=== PATIENT | male | born 1995 | race Caucasian/White ===

== ENCOUNTER 2017-11-04 02:00 | Emergency (ER) | payer SELFPAY ==
[2017-11-04 02:19] VITALS: BP 130/60; PULSE 62; RESP 14; TEMP 95.5; O2SAT 100
[2017-11-04] MEDS ORDERED: SODIUM CHLORIDE 0.9% FLUSH 10 ML FLUSH IV FLUSH PRN (02:30)
[2017-11-04 02:43] LABS: AMORPHOUS SEDIMENT, URINE RARE; BILIRUBIN, URINE NEG (NEG); BLOOD, URINE NEG (NEG); GLUCOSE,URINE NEG (NEG); KETONE, URINE NEG (NEG); NITRITE,URINE NEG (NEG); PH, URINE 5.5 (5.0-8.5); URINE COLOR COLORLESS (YELLW/STRAW); URINE LEUKOCYTE ESTERASE NEG (NEG)
[2017-11-04 02:52] LABS: AUTOMATED NEUTROPHIL # 4.9 TH/MM3 (1.8-7.7); BASOPHIL # 0.1 TH/MM3 (0-0.2); BASOPHIL % 0.8 % (0.0-2.0); EOSINOPHIL % 0.4 % (0.0-4.0); HEMATOCRIT 42.4 % (39.0-51.0); HEMOGLOBIN 14.2 GM/DL (13.0-17.0); LYMPH % 23.7 % (9.0-44.0); LYMPHOCYTE # 1.6 TH/MM3 (1.0-4.8); MEAN CELL VOLUME 89.7 FL (80.0-100.0); MEAN CORPUSCULAR HGB CONC 33.4 % (32.0-36.0); MEAN PLATELET VOLUME 9.3 FL (7.0-11.0); MONOCYTE # 0.3 TH/MM3 (0-0.9); NEUT % 71.1 % (16.0-70.0); PLATELET COUNT 220 TH/MM3 (150-450); RED BLOOD COUNT 4.73 MIL/MM3 (4.50-5.90); RED CELL DISTRIBUTION WIDTH 12.4 % (11.6-17.2); WHITE BLOOD COUNT 6.9 TH/MM3 (4.0-11.0)
[2017-11-04 02:57] LABS: ALBUMIN 4.6 GM/DL (3.4-5.0); ALT (GPT) 20 U/L (9-52); AST (GOT) 21 U/L (15-39); BICARBONATE 25.9 MEQ/L (21.0-32.0); BLOOD UREA NITROGEN 11 MG/DL (7-18); CALCIUM 8.1 MG/DL (8.5-10.1); CHLORIDE 103 MEQ/L (98-107); CREATININE 0.93 MG/DL (0.60-1.30); GLOMERULAR FILTRATION RATE 104 ML/MIN (>89); GLUCOSE,RANDOM 125 MG/DL (74-106); SODIUM (NA) 139 MEQ/L (136-145)
[2017-11-04 03:00] LABS: ALKALINE PHOSPHATASE 84 U/L (45-117); TOTAL BILIRUBIN ADULT 0.2 MG/DL (0.2-1.0); TOTAL PROTEIN 7.8 GM/DL (6.4-8.2)
[2017-11-04 03:01] LABS: ACETAMINOPHEN LESS THAN 2.0 MCG/ML (10.0-30.0)
[2017-11-04] MEDS ORDERED: SODIUM CHLOR 0.9% 1000 ML INJ 1,000 ML IV ONE (04:45)
--- NOTE | 2017-11-04 05:51 | PD ---
HPI . Alcohol/drug intoxication Chief Complaint: Alcohol/Drug Intoxication Time Seen by Provider: 02:20 Travel History International Travel<30 days: No Contact w/Intl Traveler<30days: No Traveled to known affect area: No History of Present Illness HPI 22-year-old male brought in by friends with intoxication and possible co- ingestion of illicit drugs as per friends. Patient is "not acting right". Unknown ingestion. No known suicidal ideations. PFSH Past Medical History Narrative Medical No known past medical history as per patient's friends/co-students Medical History: Unable to Obtain Diminished Hearing: No Past Surgical History Surgical History: Unable to Obtain Social History Alcohol Use: Yes (OCCASIONALLY ) Tobacco Use: No Substance Use: Yes (MARIJUANA-OCCASIONALLY ) Allergies-Medications (Allergen,Severity, Reaction): Coded Allergies: No Allergy Information Available (Unverified , 11/04/17) Narrative Medication Allergy history not available Review of Systems ROS Limitations: Clinical Condition, Intoxication Physical Exam Exam Limitations: Clinical Condition, Intoxication Narrative GENERAL: Intoxicated, delirious, nonverbal SKIN: Skin is cool and dry, no diaphoresis no rashes no flushing HEAD: Atraumatic. Normocephalic. EYES: Pupils equal and round and markedly dilated 7-9 mm, poorly reactive. No scleral icterus. No injection or drainage. No nystagmus ENT: No nasal bleeding or discharge. Mucous membranes pink and moist. NECK: Trachea midline. No JVD. Supple CARDIOVASCULAR: Regular rate and rhythm. S1-S2 no murmurs or gallops RESPIRATORY: No accessory muscle use. Clear to auscultation. Breath sounds equal bilaterally. GASTROINTESTINAL: Abdomen soft, non-tender, nondistended. Hepatic and splenic margins not palpable. MUSCULOSKELETAL: Extremities without clubbing, cyanosis, or edema. No obvious deformities. NEUROLOGICAL: Awake and delirious, writhing movements, combative but not directed PSYCHIATRIC: Appropriate mood and affect; insight and judgment normal. Data Data Last Documented VS Vital Signs Date Time Temp Pulse Resp B/P (MAP) Pulse Ox O2 Delivery O2 Flow Rate FiO2 11/04/17 02:19 95.5 62 14 130/60 (83) 100 Orders Orders Electrocardiogram (11/04/17 02:20) Ammonia (11/04/17 02:20) Complete Blood Count With Diff (11/04/17 02:20) Comprehensive Metabolic Panel (11/04/17 02:20) Urinalysis - C+S If Indicated (11/04/17 02:20) Blood Glucose (11/04/17 02:20) Ecg Monitoring (11/04/17 02:20) Iv Access Insert/Monitor (11/04/17 02:20) Oximetry (11/04/17 02:20) Sodium Chloride 0.9% Flush (Ns Flush) (11/04/17 02:30) Drug Screen, Random Urine (11/04/17 02:20) Alcohol (Ethanol) (11/04/17 02:20) Tylenol (Acetaminophen) (11/04/17 02:20) Salicylates (Aspirin) (11/04/17 02:20) Bedside Glucose [id number] (11/04/17 02:20) Sodium Chlor 0.9% 1000 Ml Inj (Ns 1000 M (11/04/17 04:45) Ed Discharge Order (11/04/17 06:18) Labs Laboratory Tests Test 11/04/17 02:26 White Blood Count 6.9 TH/MM3 Red Blood Count 4.73 MIL/MM3 Hemoglobin 14.2 GM/DL Hematocrit 42.4 % Mean Corpuscular Volume 89.7 FL Mean Corpuscular Hemoglobin 30.0 PG Mean Corpuscular Hemoglobin Concent 33.4 % Red Cell Distribution Width 12.4 % Platelet Count 220 TH/MM3 Mean Platelet Volume 9.3 FL Neutrophils (%) (Auto) 71.1 % Lymphocytes (%) (Auto) 23.7 % Monocytes (%) (Auto) 4.0 % Eosinophils (%) (Auto) 0.4 % Basophils (%) (Auto) 0.8 % Neutrophils # (Auto) 4.9 TH/MM3 Lymphocytes # (Auto) 1.6 TH/MM3 Monocytes # (Auto) 0.3 TH/MM3 Eosinophils # (Auto) 0.0 TH/MM3 Basophils # (Auto) 0.1 TH/MM3 CBC Comment DIFF FINAL Differential Comment Urine Color COLORLESS Urine Turbidity CLEAR Urine pH 5.5 Urine Specific [place] 1.003 Urine Protein NEG mg/dL Urine Glucose (UA) NEG mg/dL Urine Ketones NEG mg/dL Urine Occult Blood NEG Urine Nitrite NEG Urine Bilirubin NEG Urine Urobilinogen LESS THAN 2.0 MG/DL Urine Leukocyte Esterase NEG Urine RBC LESS THAN 1 /hpf Urine WBC 1 /hpf Urine Amorphous Sediment RARE Microscopic Urinalysis Comment CATH-CULT NOT IND Blood Urea Nitrogen 11 MG/DL Creatinine 0.93 MG/DL Random Glucose 125 MG/DL Total Protein 7.8 GM/DL Albumin 4.6 GM/DL Calcium Level 8.1 MG/DL Alkaline Phosphatase 84 U/L Aspartate Amino Transf (AST/SGOT) 21 U/L Alanine Aminotransferase (ALT/SGPT) 20 U/L Total Bilirubin 0.2 MG/DL Sodium Level 139 MEQ/L Potassium Level 4.0 MEQ/L Chloride Level 103 MEQ/L Carbon Dioxide Level 25.9 MEQ/L Anion Gap 10 MEQ/L Estimat Glomerular Filtration Rate 104 ML/MIN Ammonia 34 MCMOL/L Salicylates Level LESS THAN 1.7 MG/DL Urine Opiates Screen NEG Acetaminophen Level LESS THAN 2.0 MCG/ML Urine Barbiturates Screen NEG Urine Amphetamines Screen NEG Urine Benzodiazepines Screen NEG Urine Cocaine Screen NEG Urine Cannabinoids Screen POS Ethyl Alcohol Level 298 MG/DL MDM Medical Decision Making Medical Screen Exam Complete: Yes Emergency Medical Condition: Yes Medical Record Reviewed: Yes Differential Diagnosis Intoxication, coingestion Narrative Course Alcohol level elevated. Patient's current toxidrome most likely represents, ingestion. Urine toxicology negative. Ambulatory Services Representative drugs such as Letty/ecstasy possible Patient awakened, answering questions appropriately, and then subsequently stood by the side the bed and urinated on the etienne of patient room 34. Patient denies suicidal or homicidal ideations. Patient notes recreational use of ingested substances but will not elaborate further Diagnosis Primary Impression: Intoxication by drug Qualified Codes: F19.929 - Other psychoactive substance use, unspecified with intoxication, unspecified Additional Impression: Alcohol intoxication Qualified Codes: F10.929 - Alcohol use, unspecified with intoxication, unspecified Patient Instructions: Alcohol Intoxication (ED), General Instructions, Polysubstance Abuse (ED) Additional Instructions: Do not take illicit drugs, do not combine medications and or illicit drugs with alcohol. Do not drink alcohol until legal age of 21. Follow-up with [facility]. Return for worsening Disposition: 01 DISCHARGE HOME Condition: Stable Bolivar Chairez MD Nov 04, 2017 05:50
--- NOTE | 2017-11-04 13:58 | EKG ---
Date Performed: 11/04/2017 Time Performed: 02:42:30 PTAGE: 22 years EKG: Sinus rhythm INCOMPLETE RIGHT BUNDLE BRANCH BLOCK ST ELEVATION, PROBABLY EARLY REPOLARIZATION BORDERLINE ECG NO PREVIOUS TRACING DOCTOR: Emery Spear Interpretating Date/Time 11/04/2017 13:58:27
== END 2017-11-04 06:43 | disposition home or self-care (01) ==
LOC: NEPC 02:00
DX: F12.929 Cannabis use, unspecified with intoxication, unspecified (principal); F10.929 Alcohol use, unspecified with intoxication, unspecified; Y90.8 Blood alcohol level of 240 mg/100 ml or more; I45.10 Unspecified right bundle-branch block; R82.99 Other abnormal findings in urine
CPT/HCPCS: 80053; 80307; 81001; 82140; 85025; 93005; 96360; 99284; J7030